=== PATIENT | male | born 1925 | race Caucasian/White ===

== ENCOUNTER → 2016-12-02 | Outpatient (CLI) | payer MEDICARE, BC ==
[2016-12-02 09:39] LABS: ALT 26 U/L (21-72); AST 23 U/L (17-59); Cholesterol 125 mg/dL (<200); HDL Cholesterol 55 mg/dL (40-60)
== END | disposition home or self-care (01) ==
LOC: LABWHC1 09:00
PROVIDERS: ATTEND Internal Medicine Cardiovascular Disease
DX: E78.2 Mixed hyperlipidemia (principal)
CPT/HCPCS: 36415; 80061; 84450; 84460